=== PATIENT | female | born 1995 | race Caucasian/White ===

== ENCOUNTER 2017-06-15 10:52 | Emergency (ER) | payer OTHER ==
[2017-06-15 10:57] VITALS: BP 113/56; BMI 31.8
[2017-06-15 11:54] LABS: BILIRUBIN,URINE NEGATIVE (NEGATIVE); BLOOD/HEMOGLOBIN,URINE 5+ (NEGATIVE); GLUCOSE, URINE NEGATIVE (NEGATIVE); KETONES,URINE NEGATIVE (NEGATIVE); LEUKOCYTE ESTERASE ,URINE 1+ (NEGATIVE); NITRITES,URINE NEGATIVE (NEGATIVE); PROTEIN,URINE 1+ (NEGATIVE); UROBILINOGEN,URINE NORMAL (NORMAL)
[2017-06-15 12:00] LABS: APPEARANCE,URINE SLIGHTLY HAZY (CLEAR); BACTERIA,URINE NEGATIVE /HPF (NEGATIVE); COLOR,URINE YELLOW (YELLOW); MUCUS,URINE FEW /HPF (NEGATIVE); SQUAMOUS EPITHELIAL CELL,UR FEW /HPF (NEGATIVE)
--- NOTE | 2017-06-15 13:04 | DR.GENAD ---
HPI - PCP Primary Care Physician: NFD - Complaint/Symptoms Chief Complaint Doctors Comments: History as stated. LMP Apr 12-6?. Chief Complaint:: PT. TOOK AN AT HOME TEST ON 06/05/17 WHICH WAS POSITIVE. PT. C/O VAGINAL BLEEDING THAT BEGAN THIS MORNING AND LOWER BACK PAIN. - Source History Provided: Patient - Mode of Arrival Mode of Arrival: Ambulatory - Timing Onset of Chief Complaint: 06/15/17 PMH - PMH Past Medical History: No Past Medical History: Headaches Past Surgical History: No Surgical History: No History - Family History History of Family Medical Conditions: Yes Family Medical History: Hypertension - Social History Does patient currently use any type of tobacco product: No Have you used tobacco products in the last 12 months: No Type of Tobacco Use: None Does any household member use tobacco: No Alcohol Use: None Do you use any recreational Drugs:: No Lives With: Family Lives Where: Home - infectious screening In the last 2 months have you had wt loss of >10#?: NO Have you had fever, night sweats or hemotysis?: No Have you traveled outside the country in the last 6 months?: No Isolation: Standard ROS - Review of Systems Eyes: No Symptoms Reported ENTM: No Symptoms Reported Respiratoy: No Symptoms Reported Cardiovascular: No Symptoms Reported Gastrointestinal/Abdominal: No Symptoms Reported Genitourinary: No Symptoms Reported Neurological: No Symptoms Reported Musculoskeletal: No Symptoms Reported Integumentary: No Symptoms Reported Hematologic/Lymphatic: No Symptoms Reported Endocrine: No Symptoms Reported Psychiatric: No Symptoms Reported All Other Systems: Reviewed and Negative PE - Vital Signs Vitals: Temperature 98.7 F Pulse Rate 83 Respiratory Rate 17 Blood Pressure [Left Arm] 116/71 Blood Pressure 113/56 O2 Sat by Pulse Oximetry 100 - General Limitations: No Limitations - Head Head Exam: Normal Inspection, Atraumatic - Eyes Eye exam: EOMI - ENT ENT Exam: Normal Exam External Ear Exam: Normal External Inspection TM/Canal Exam: Bilateral Normal Nose Exam: Normal Nose Exam Mouth Exam: Normal Inspection Throat Exam: Normal Inspection - Neck Neck Exam: Normal Inspection, Full ROM - Chest Chest Inspection: Normal Inspection - Respiratory Respiratory Exam: Normal Lung Sounds Bilat Respiratory Exam: Bilateral Clear to Auscultation - Cardiovascular Cardiovascular Exam: Regular Rate, Normal Rhythm - Abdominal Exam Abdominal Exam: Normal Inspection, Normal Bowel Sounds Abdominal Tenderness: negative: RUQ, RLQ, LUQ, LLQ, Epigastrium, Suprapubic, Diffuse, Mild, Moderate, Severe, Other - Extremities Extremities Exam: Normal Inspection, Full ROM - Back Back Exam: Normal Inspection, Full ROM - Neurologic Neurological Exam: Alert, Oriented X3, CN II-XII Intact - Psychiatric Psychiatric Exam: Normal Affect ROR - Labs Reviewed Laboratory: HCG, Quant 57 mIU/mL (0-6) H 06/15/17 12:03 Specimen Type Clean catch urine 06/15/17 11:45 Urine Color Yellow (YELLOW) 06/15/17 11:45 Urine Appearance Slightly hazy (CLEAR) 06/15/17 11:45 Urine pH 6.0 (5.0 - 8.0) 06/15/17 11:45 Ur Specific [place] 1.010 (1.000-1.030) 06/15/17 11:45 Urine Protein 1+ (NEGATIVE) 06/15/17 11:45 Urine Glucose (UA) Negative (NEGATIVE) 06/15/17 11:45 Urine Ketones Negative (NEGATIVE) 06/15/17 11:45 Urine Occult Blood 5+ (NEGATIVE) 06/15/17 11:45 Urine Nitrite Negative (NEGATIVE) 06/15/17 11:45 Urine Bilirubin Negative (NEGATIVE) 06/15/17 11:45 Urine Urobilinogen Normal (NORMAL) 06/15/17 11:45 Ur Leukocyte Esterase 1+ (NEGATIVE) 06/15/17 11:45 Urine RBC 10-15 /HPF (NEGATIVE) 06/15/17 11:45 Urine WBC 2-5 /HPF (NEGATIVE) 06/15/17 11:45 Ur Squamous Epith Cells Few /HPF (NEGATIVE) 06/15/17 11:45 Urine Bacteria Negative /HPF (NEGATIVE) 06/15/17 11:45 Urine Mucus Few /HPF (NEGATIVE) 06/15/17 11:45 Ur Culture Indicated? No/not indicated 06/15/17 11:45 - XRAY XRAY Interpreted by: Radiologist (OB US: Impression: unremarkable uterus with mild thickening of the endometrium which is probably due to secretory phase with no intrauterine mass or fluid collection and specifically, no gestational sac identified. This coulld represent a very early vs sponstaneous or less likely an occult ectopic. Recommend correlating with serial beta HCGs and follow up ultrasounds. Normal ovaries with no adnexal mass. Minimal free fluid in the cul-de-sac which appears physiologic.) - Diagnosis Discharge Problem: Vaginal bleeding affecting early - Discharge Plan Condition: Stable - Follow ups/Referrals Follow ups/Referrals: [facility] [Primary Care Provider] - 3 days - Instructions
--- NOTE | 2017-06-15 13:28 | US ---
History: Vaginal bleeding Exam: Limited OB ultrasound Comparison: None Technique: Multiple grayscale and color flow Doppler images of the pelvis were obtained. Findings: The uterus measures 6 x 4 x 3.7 cm and is normal in echogenicity. The endometrium measures 6.8 mm wit h no intrauterine mass or fluid collection and no obvious gestational sac identified. The right ovary measures 4 x 2.6 x 2 cm. The left ovary measures 4 x 2.6 x 2.2 cm. There are tiny follicles througho ut both ovaries with no ovarian or adnexal mass seen. There is minimal physiologic fluid in the cul-d e-sac. IMPRESSION: Unremarkable uterus with mild thickening of the endometrium which is probably due to the secretory ph ase with no intrauterine mass or fluid collection and specifically, no gestational sac identified. Th is could represent a very early vs spontaneous or less likely an occult ectopic. R ecommend correlating with serial beta HCG's and follow-up ultrasound exams. Normal ovaries with no adnexal mass. Minimal free fluid in the cul-de-sac which appears physiologic. Reported By:
== END 2017-06-15 13:51 | disposition home or self-care (01) ==
LOC: ER 11:30
DX: O20.9 Hemorrhage in early pregnancy, unspecified (principal); Z3A.00 Weeks of gestation of pregnancy not specified
CPT/HCPCS: 36415; 76801; 81001; 84702; 99282; 99284